=== PATIENT | male | born 1960 | race Asian ===

== ENCOUNTER 2018-02-14 14:51 | Emergency (ER) | payer SELFPAY ==
[~2018-02-14] VITALS: Ht 167.6 cm; Wt 71.2 kg
[2018-02-14 15:01] VITALS: BP_SYST 173
--- NOTE | 2018-02-14 16:30 | NUR ---
Unable to locate patient. Patient presumed to have LWBS.
== END 2018-02-20 16:30 | disposition left against medical advice (07) ==
LOC: SED 14:51
DX: M79.644 Pain in right finger(s) (principal); Z53.21 Procedure and treatment not carried out due to patient leaving prior to being seen by health care provider